=== PATIENT | female | born 1945 | race Caucasian/White ===

== ENCOUNTER 2019-05-08 14:13 | Outpatient (REF) | payer MEDICARE, OTHER, SELFPAY ==
[2019-05-08 21:48] LABS: Abs Immature Grans 0.02 k/cumm (0.0-0.09); Absolute Basophil Count 0.07 k/cumm (0.0-0.2); Absolute Eosinophil Count 0.13 k/cumm (0.0-0.7); Absolute Lymphocyte Count 1.59 k/cumm (1.2-3.4); Absolute Monocyte Count 0.89 k/cumm (0.11-0.7); Absolute Neutrophil Count 5.99 k/cumm (1.2-6.7); Basophils % 0.8; Eosinophils % 1.5; HGB 13.5 g/dL (12.0-15.5); Immature Grans % 0.2; Lymphocytes % 18.3; Mean Corp. HGB Concentration 34.6 g/dL (32.0-36.0); Mean Corpuscular Hemoglobin 31.1 pg (27.0-33.0); Mean Corpuscular Volume 89.9 fL (80-95); Mean Platelet Volume 8.6 fL (8.0-11.0); Monocytes % 10.2; Platelet Count 388 x1000/uL (130-400); RBC 4.34 m/cumm (4.00-5.20); White Blood Cell Count 8.69 k/cumm (4.4-10.8)
[2019-05-08 22:27] LABS: ESR 45 MM/HR (0-30)
[2019-05-08 22:35] LABS: C-Reactive Protein 3.46 mg/dL (0.0-0.3)
[2019-05-10 09:28] LABS: Rheumatoid Factor <8 IU/mL (<12.5)
[2019-05-10 10:10] LABS: Cyclic Citrullinated Peptide <2.5 U/mL (<5.0)
[2019-05-10 14:03] LABS: ANA Interpretation Positive (NEGAT); ANA Titer Pattern SEE COMMENTS
[2019-05-10 14:05] LABS: Lyme Ab w Rflx to Lyme Confirm Negative
== END 2019-05-08 14:33 ==
LOC: NCHCN 14:13
PROVIDERS: PCP Family Medicine; Visit Provider Registered Nurse
DX: M79.643 Pain in unspecified hand (principal); M25.50 Pain in unspecified joint
CPT/HCPCS: 85652; 86200; 85025; 86038; 86140; 86431; 86618

== ENCOUNTER 2020-11-26 19:11 | Outpatient (REF) | payer MEDICARE, OTHER, SELFPAY ==
[2020-11-28 13:42] LABS: COVID-19 RT-PCR UVMMC Result Negative (Negative)
== END 2020-11-26 19:31 ==
LOC: NCHCN 19:11
PROVIDERS: PCP Family Medicine; Visit Provider Family Medicine
DX: J06.9 Acute upper respiratory infection, unspecified (principal)
CPT/HCPCS: U0003

== ENCOUNTER 2021-01-30 10:28 | Outpatient (REF) | payer MEDICARE, OTHER, SELFPAY ==
[2021-01-30 13:49] LABS: BUN 13 mg/dL (7-18); CREATININE 0.8 mg/dL (0.55-1.02); Calcium 8.7 mg/dL (8.5-10.1); Chloride 100 mmol/L (98-107); Glucose 98 mg/dL (74-106); Potassium 3.7 mmol/L (3.5-5.1); Sodium 133 mmol/L (136-145)
== END 2021-01-30 10:29 | disposition home or self-care (01) ==
LOC: NCHCN 10:28
PROVIDERS: PCP Family Medicine; Visit Provider Family Medicine
DX: I10 Essential (primary) hypertension (principal)
CPT/HCPCS: 80048

== ENCOUNTER 2024-01-27 16:17 | Outpatient (REF) | payer MEDICARE, OTHER, SELFPAY ==
[2024-01-27 15:38] LABS: Anion Gap 7.1 mmol/L (3-11); BUN 16 mg/dL (7-18); CO2 28.9 mmol/L (21.0-32.0); CREATININE 0.8 mg/dL (0.55-1.02); Calcium 8.7 mg/dL (8.5-10.1); Calculated LDL 153 mg/dL (<100); Chloride 103 mmol/L (98-107); Cholesterol 222 mg/dL (<200); Estimated GFR 75.84 (mL/min/1.73m2); Glucose 87 mg/dL (74-106); HDL Cholesterol 52 mg/dL (40-60); Potassium 3.7 mmol/L (3.5-5.1); Sodium 139 mmol/L (136-145); TSH 1.61 uIU/Ml (0.36-3.74); Triglyceride 87 mg/dL (<150)
[2024-01-27 16:00] LABS: FREE T4 1.07 ng/dL (0.76-1.46)
== END 2024-01-27 16:18 | disposition home or self-care (01) ==
LOC: NCHCN 16:17
PROVIDERS: PCP Family Medicine; Visit Provider Family Medicine
DX: E78.5 Hyperlipidemia, unspecified (principal); I10 Essential (primary) hypertension; R63.8 Other symptoms and signs concerning food and fluid intake
CPT/HCPCS: 80048; 80061; 84439; 84443

== ENCOUNTER 2025-02-25 16:13 | Outpatient (REF) | payer MEDICARE, SELFPAY ==
[2025-02-25 21:58] LABS: Anion Gap 10.9 mmol/L (3-11); BUN 10 mg/dL (7-18); CO2 29.1 mmol/L (21.0-32.0); CREATININE 0.8 mg/dL (0.55-1.02); Calcium 9.7 mg/dL (8.5-10.1); Chloride 97 mmol/L (98-107); Estimated GFR 75.37 (mL/min/1.73m2); Glucose 93 mg/dL (74-106); Potassium 3.8 mmol/L (3.5-5.1); Sodium 137 mmol/L (136-145)
== END 2025-02-25 16:14 | disposition home or self-care (01) ==
LOC: NCHCN 16:13
PROVIDERS: PCP Family Medicine; Visit Provider Family Medicine
DX: R30.0 Dysuria (principal); I10 Essential (primary) hypertension
CPT/HCPCS: 80048; 87077; 87086; 87186